=== PATIENT | female | born 1980 | race Caucasian/White ===

== ENCOUNTER 2018-10-25 09:10 | Emergency (ER) | payer OTHER, SELFPAY ==
[2018-10-25 09:16] VITALS: BP 146/66; PULSE 84; RESP 16; TEMP 36.7; O2SAT 99; BMI 44.2
--- NOTE | 2018-10-25 09:27 | ED.ABDPAIN ---
HPI - Abdominal Pain General Chief Complaint: Abdominal Pain Stated Complaint: Abd pain Time Seen by Provider: 10/25/18 09:15 Source: patient Mode of arrival: ambulatory Limitations: no limitations History of Present Illness HPI narrative: Patient is a 38-year-old female who presents with right lower quadrant pain. She says it started suddenly this morning while she was cooking breakfast 1 hour ago. She was doing well this week except a little fatigued. She is also having some right-sided flank pain. She does have a history of ovarian cyst but says this feels nothing like that. The pain comes in waves she feels nauseous at times. MD complaint: abdominal pain and flank pain Onset (ago): hour(s) Pain Consistency: intermittent Location: RLQ Severity: moderate Radiation: RLQ and R flank Relieving factors: nothing Exacerbating factors: nothing Related Data Allergies Allergy/AdvReac Type Severity Reaction Status Date / Time No Known Drug Allergies Allergy Verified 10/25/18 09:19 Review of Systems Review of Systems Narrative: GENERAL: Denies chills, fatigue, malaise, fever, sweats, travel HEENT: Denies sinus pain, ear pain, sore throat, difficulty swallowing, neck pain RESPIRATORY: Denies dyspnea, cough, wheezing, hemoptysis, sputum. CARDIOVASCULAR: Denies chest pain, palpitations, orthopnea, edema GASTROINTESTINAL: Denies nausea, vomiting, abdominal pain, diarrhea, constipation, melena. : See HPI MUSCULOSKELETAL: Denies weakness, joint pain, or bony pain SKIN: No rash, no erythema, no pruritus NEUROLOGIC: Denies weakness, dizziness, headache, numbness, change in speech, confusion PSYCHIATRIC: No concerning psychosocial issues. 12 point review of systems is negative except for those stated above and HPI [facility] Medical History Hemorrhagic ovarian cyst (Acute) Social History Smoking Status: Never smoker Social History Smoking Status: Never smoker Exam Initial Vital Signs Initial Vital Signs: Vital Signs Temperature 98.1 F 10/25/18 09:16 Pulse Rate 84 10/25/18 09:16 Respiratory Rate 16 10/25/18 09:16 Blood Pressure 146/66 H 10/25/18 09:16 Pulse Oximetry 99 09/08/19 09:16 GENERAL: Overweight female and in no acute distress. HEENT: Head atraumatic,EOMI, pupils reactive, face symmetric, moist mucous membranes CARDIOVASCULAR: Regular rate and rhythm without murmurs, rubs or gallops. RESPIRATORY: Breath sounds equal bilaterally, no wheezes rales or rhonchi. ABDOMEN: Soft, nontender. Normoactive bowel sounds all 4 quadrants. No guarding or rebound. : mild right CVA tenderness EXTREMITIES: Normal range of motion, no clubbing or edema. Neurovascularly intact NEUROLOGICAL: Alert and oriented x4.Normal gait and speech. Cranial nerves II through XII grossly intact. SKIN: Warm, dry, no laceration, no petechiae, no rashes or lesions. Course Orders Ordered: ED Orders 10/25/18 09:59 CT kidney ureter bladder (KUB) Stat 10/25/18 11:06 US pelvic complete Stat Discontinued Medications Ketorolac Tromethamine (Toradol) 30 mg IV NOW ONE Stop: 10/25/18 09:26 Last Admin: 10/25/18 09:42 Dose: 30 mg Documented by: MARIA M Morphine Sulfate (Morphine) 4 mg IV NOW ONE Stop: 10/25/18 10:07 Last Admin: 10/25/18 10:10 Dose: 4 mg Documented by: MARIA M Ondansetron HCl (Zofran) 4 mg IV NOW ONE Stop: 10/25/18 09:26 Last Admin: 10/25/18 09:42 Dose: 4 mg Documented by: MARIA M Vital Signs Vital signs: Vital Signs - 8 hr 10/25/18 12:28 10/25/18 12:45 Pulse Rate 64 60 Respiratory Rate 17 Blood Pressure [Left Arm] 146/50 H Pulse Oximetry 97 96 MDM - Abdominal Pain Lab Data Attestation: I reviewed the patient's lab results. Result diagrams: 10/25/18 09:30 10/25/18 09:30 Labs: Lab Results 10/25/18 10/25/18 10/25/18 Range/Units 09:30 09:30 09:30 WBC 7.8 (4.5-11.0) X10^3/uL RBC 4.51 (4.0-5.2) X10^6/uL Hgb 14.4 (12.0-16.0) g/dL Hct 41.3 (36-46) % MCV 91.6 (80-100) fL MCH 31.9 (26-34) PG MCHC 34.9 (30-36) % RDW 13.3 (11.6-14.8) % Plt Count 329 (150-400) X10^3/uL Neut % (Auto) 73.7 (50-75) % Lymph % (Auto) 17.9 L (25-40) % [place] % (Auto) 6.2 (3-14) % Eos % (Auto) 1.7 L (2-4) % Baso % (Auto) 0.5 (0-2) % Neut # (Auto) 5700 (1322-5281) /uL Lymph # (Auto) 1400 (1420-4456) /uL [place] # (Auto) 500 (0-900) /uL Eos # (Auto) 100 (0-450) /uL Baso # (Auto) 0 (0-100) /uL PT Cancelled INR Cancelled APTT Cancelled Sodium 138 (137-145) mmol/L Potassium 3.7 (3.4-5.1) mmol/L Chloride 99 (98-107) mmol/L Carbon Dioxide 27 (22-32) mmol/L BUN 15 (7-17) mg/dL Creatinine 0.70 (0.52-1.04) mg/dL Estimated GFR > 60.0 (>60) mL/min BUN/Creatinine Ratio 21.4 (6-22) Glucose 109 H (70-100) mg/dL Calcium 9.5 (8.4-10.2) mg/dL Total Bilirubin 0.6 (0.2-1.3) mg/dL AST 25 (14-36) IU/L ALT 24 (9-52) IU/L Alkaline Phosphatase 102 (38-126) U/L Total Protein 7.9 (6.3-8.2) g/dL Albumin 4.6 (3.5-5.0) g/dL Globulin 3.3 (1.7-4.1) g/dL Albumin/Globulin Ratio 1.4 (1.0-2.8) Lipase 55 (23-300) U/L Urine RBC (0-5/HPF) Urine WBC (0-5/HPF) Ur Squamous Epith Cells (0-5/HPF) Urine Bacteria (None) Ur Culture Indicated? 10/25/18 Range/Units 09:30 WBC (4.5-11.0) X10^3/uL RBC (4.0-5.2) X10^6/uL Hgb (12.0-16.0) g/dL Hct (36-46) % MCV (80-100) fL MCH (26-34) PG MCHC (30-36) % RDW (11.6-14.8) % Plt Count (150-400) X10^3/uL Neut % (Auto) (50-75) % Lymph % (Auto) (25-40) % [place] % (Auto) (3-14) % Eos % (Auto) (2-4) % Baso % (Auto) (0-2) % Neut # (Auto) (6941-2740) /uL Lymph # (Auto) (6343-3774) /uL [place] # (Auto) (0-900) /uL Eos # (Auto) (0-450) /uL Baso # (Auto) (0-100) /uL PT INR APTT Sodium (137-145) mmol/L Potassium (3.4-5.1) mmol/L Chloride (98-107) mmol/L Carbon Dioxide (22-32) mmol/L BUN (7-17) mg/dL Creatinine (0.52-1.04) mg/dL Estimated GFR (>60) mL/min BUN/Creatinine Ratio (6-22) Glucose (70-100) mg/dL Calcium (8.4-10.2) mg/dL Total Bilirubin (0.2-1.3) mg/dL AST (14-36) IU/L ALT (9-52) IU/L Alkaline Phosphatase (38-126) U/L Total Protein (6.3-8.2) g/dL Albumin (3.5-5.0) g/dL Globulin (1.7-4.1) g/dL Albumin/Globulin Ratio (1.0-2.8) Lipase (23-300) U/L Urine RBC None seen (0-5/HPF) Urine WBC 0-1/hpf (0-5/HPF) Ur Squamous Epith Cells 0-1 /hpf (0-5/HPF) Urine Bacteria Occasional (0-1) (None) Ur Culture Indicated? Specimen cultured Point of care testing: Point of Care Testing Test Results Negative Urine Dip Bedside Urine Glucose Negative Bedside Urine Bilirubin - Negative Bedside Urine Ketone - Negative Urine Specific [place] 1.020 Bedside Urine Occult Blood - Negative Bedside Urine pH 6.0 Bedside Urine Urobilinogen - Negative Bedside Urine Nitrite - Negative Bedside Urine Leukocytes +/- [address] scan - abdomen: Radiologist's impression: PROCEDURE: CT KIDNEY URETER BLADDER (KUB) INDICATIONS: right flank pain and rlq TECHNIQUE: Noncontrast 5 mm thick sections acquired from the diaphragms to the symphysis. 5 mm thick coronal and sagittal reformats were then performed. For radiation dose reduction, the following was used: automated exposure control, adjustment of mA and/or kV according to patient size. COMPARISON: None. FINDINGS: Image quality: Diagnostic Lung bases: Lung bases are clear. Heart size is normal. Urinary system: Both kidneys are normal in size. A small parenchymal calcification appears to be present along the inferior margin of the right kidney, which could potentially be related to a small cyst. This is not adequately characterized on this exam. Slight increased density of the renal permits is present without definite renal calculi evident.. No hydronephrosis or perinephric fat stranding. Both ureters appear non-dilated throughout their expected courses. Bladder wall thickness is normal; no calcified bladder stones. Other solid organs: Liver is normal in size. Gallbladder is not enlarged or inflamed. Pancreas is normal in contours. Spleen is normal in size. No adrenal nodules. Peritoneum and bowel: The stomach is unremarkable. The small bowel loops are nondilated. However, there are areas of mild wall prominence involving the distal ileum. The appendix is well-visualized and normal without surrounding inflammation. The colon is unremarkable. No free fluid, loculated fluid collection or free air is evident. Nodes and vessels: No retroperitoneal or mesenteric adenopathy by size criteria. Aorta and inferior vena cava are normal in caliber. Other pelvic soft tissues: No free pelvic fluid. No inguinal hernias or adenopathy. An intrauterine contraceptive device is positioned within the uterine cavity. The ovaries do not appear to be enlarged. No free fluid or loculated fluid collection is appreciated. Bones: No suspicious bony lesions. No vertebral body compression fractures. Mild degenerative changes of the lower lumbar spine and sacroiliac joints are present. IMPRESSION: 1. No hydronephrosis or obstructing renal calculi. No definite nephrolithiasis is appreciated. 2. Inferior right renal parenchymal calcification may be associated with a solid or cystic structure. A CT urogram is recommended for further evaluation. 3. Normal appendix. 4. Nonspecific ileal wall prominence may be related to incomplete distention. However, enteritis could potentially have this appearance in the correct clinical setting. There is no bowel obstruction. Dictated by: Alex Pickett M.D. on 10/25/2018 at 9:48 Approved by: Alex Pickett M.D. on 10/25/2018 at 9:53 pelvic US: Radiologist's impression: PROCEDURE: US PELVIC COMPLETE INDICATIONS: RIGHT LOWER QUADRANT PAIN HISTORY OF OVARIAN CYST TECHNIQUE: Real-time scanning was performed of the pelvic organs, with image documentation. Additional endovaginal scanning was necessary due to incomplete visualization of the adnexal and endometrial structures by transabdominal scanning. COMPARISON: [facility], CT, CT KIDNEY URETER BLADDER (KUB), 10/25/2018, 10:15. FINDINGS: Transabdominal scanning: Limited scanning through the kidneys shows no hydronephrosis. No pathologic free abdominal or pelvic fluid. Endovaginal scanning: Uterus: The uterus is normal in size and measures approximately 7.4 x 4.0 x 3.6 cm. No focal myometrial lesions are identified. An intrauterine contraceptive device is positioned within the endometrial cavity. Endometrium is a somewhat heterogeneous appearance with increased vascularity identified along the lower uterine segment. No definite fluid is seen within the endometrium. The endometrium is not well evaluated related to the intrauterine contraceptive device, but measures at least 11 mm in maximal combined thickness. Small nabothian cysts are present within the cervix. There may be a pedunculated polyp arising from the cervix that projects into the external cervical os, measuring 7 x 8 x 5 mm. Internal blood flow is demonstrated to this structure. Ovaries: The left ovary is enlarged and measures 4.3 x 3.7 x 2.0 cm. This is related to small left ovarian follicles and a small 2.2 cm left ovarian cyst. The right ovary is borderline enlarged at 3.1 x 2.9 x 1.7 cm. Small follicles of the right ovary are present. A dominant follicle in the right ovary measures up to 1.8 cm. Blood flow is demonstrated to both ovaries. IMPRESSION: 1. No definite source for the patient's right lower quadrant pain is evident. No right ovarian cysts. 2. Small simple appearing left ovarian cyst. 3. There appears to be a pedunculated endocervical polyp projecting beyond the external cervical os. Correlation with direct visualization is recommended. 4. Intrauterine contraceptive device is appropriately positioned within the endometrial cavity. Dictated by: Alex Pickett M.D. on 10/25/2018 at 11:28 Approved by: Alex Pickett M.D. on 10/25/2018 at 11:[address] [facility] Narrative Medical decision making narrative: At this time no cause of abdominal pain found. She did require morphine and Toradol, morphine seem to help the most. At this time recommend outpatient follow-up. At this time not having signs or symptoms of UTI. Await for urine culture. I discussed all findings with the patient and family, Education has been performed regarding treatment plan, diagnosis, warning signs and symptoms and all concerns have been addressed. Verbally agree with and understood all of the above. Discharge Plan Departure Patient Disposition: Home Clinical Impression: Abdominal pain Qualifiers: Abdominal location: right lower quadrant Qualified Code(s): R10.31 - Right lower quadrant pain Discharge Date/Time: 10/25/18 12:55 Instructions: DI for Abdominal Pain-Adult Activity Restrictions/Additional Instructions: *You have been diagnosed with abdominal pain right lower quadrant *What to do: At this time year pending x-ray is normal no sign of kidney stone, you do have a left simple ovarian cyst but not a right 1. Blood work reassuring *Continue to take medications as directed Tylenol 1000 mg every 6 hours if needed for pain *Follow up with your primary care provider in 2-3 days *Return to ER if you should have increasing pain persistent vomiting, fevers or any new, worsening or concerning symptoms
[2018-10-25 09:38] LABS: Add Manual Diff / Slide Review NO; Basophils Absolute Auto 0 /uL (0-100); Basophils Percent Auto 0.5 % (0-2); Eosinophils Absolute Auto 100 /uL (0-450); Eosinophils Percent Auto 1.7 % (2-4); Hematocrit 41.3 % (36-46); Hemoglobin 14.4 g/dL (12.0-16.0); Lymphocytes Absolute Auto 1400 /uL (1100-4500); Lymphocytes Percent Auto 17.9 % (25-40); Mean Corpuscular HGB Conc 34.9 % (30-36); Mean Corpuscular Hemoglobin 31.9 PG (26-34); Mean Corpuscular Volume 91.6 fL (80-100); Monocytes Absolute Auto 500 /uL (0-900); Monocytes Percent Auto 6.2 % (3-14); Neutrophils Absolute Auto 5700 /uL (1500-7000); Neutrophils Percent Auto 73.7 % (50-75); Platelet Count 329 X10^3/uL (150-400); Red Blood Cell Count 4.51 X10^6/uL (4.0-5.2); Red Cell Distribution Width 13.3 % (11.6-14.8); White Blood Cell Count 7.8 X10^3/uL (4.5-11.0)
[2018-10-25 09:42] LABS: RBC Urine None Seen (0-5/HPF)
[2018-10-25] MEDS: ONDANSETRON 4 MG/2 ML INJ IV (09:42)
[2018-10-25] MEDS: KETOROLAC 60 MG/2 ML VIAL 30 MG IV (09:42)
[2018-10-25 09:49] LABS: Alanine Aminotransferase 24 IU/L (9-52); Albumin 4.6 g/dL (3.5-5.0); Albumin Globulin Ratio 1.4 (1.0-2.8); Alkaline Phosphatase 102 U/L (38-126); Aspartate Aminotransferase 25 IU/L (14-36); BUN Creatinine Ratio 21.4 (6-22); Bilirubin Total 0.6 mg/dL (0.2-1.3); Blood Urea Nitrogen 15 mg/dL (7-17); Calcium 9.5 mg/dL (8.4-10.2); Carbon Dioxide 27 mmol/L (22-32); Chloride 99 mmol/L (98-107); Estimated Glomerular Filt Rate > 60.0 mL/min (>60); Globulin 3.3 g/dL (1.7-4.1); Glucose 109 mg/dL (70-100); HEMOLYSIS 25 (0-50); Lipase 55 U/L (23-300); Potassium 3.7 mmol/L (3.4-5.1); Sodium 138 mmol/L (137-145); Total Protein 7.9 g/dL (6.3-8.2)
[2018-10-25 09:56] LABS: Bacteria Urine Occasional (0-1); Culture Indicated Urine Specimen Cultured; Squamous Epithelial Cell Urine 0-1 /HPF (0-5/HPF); WBC Urine 0-1/HPF (0-5/HPF)
--- NOTE | 2018-10-25 09:59 | DI.CT.S_ITS ---
PROCEDURE: CT KIDNEY URETER BLADDER (KUB) INDICATIONS: right flank pain and rlq TECHNIQUE: Noncontrast 5 mm thick sections acquired from the diaphragms to the symphysis. 5 mm thick coronal and sagittal reformats were then performed. For radiation dose reduction, the following was used: automated exposure control, adjustment of mA and/or kV according to patient size. COMPARISON: None. FINDINGS: Image quality: Diagnostic Lung bases: Lung bases are clear. Heart size is normal. Urinary system: Both kidneys are normal in size. A small parenchymal calcification appears to be present along the inferior margin of the right kidney, which could potentially be related to a small cyst. This is not adequately characterized on this exam. Slight increased density of the renal permits is present without definite renal calculi evident.. No hydronephrosis or perinephric fat stranding. Both ureters appear non-dilated throughout their expected courses. Bladder wall thickness is normal; no calcified bladder stones. Other solid organs: Liver is normal in size. Gallbladder is not enlarged or inflamed. Pancreas is normal in contours. Spleen is normal in size. No adrenal nodules. Peritoneum and bowel: The stomach is unremarkable. The small bowel loops are nondilated. However, there are areas of mild wall prominence involving the distal ileum. The appendix is well-visualized and normal without surrounding inflammation. The colon is unremarkable. No free fluid, loculated fluid collection or free air is evident. Nodes and vessels: No retroperitoneal or mesenteric adenopathy by size criteria. Aorta and inferior vena cava are normal in caliber. Other pelvic soft tissues: No free pelvic fluid. No inguinal hernias or adenopathy. An intrauterine contraceptive device is positioned within the uterine cavity. The ovaries do not appear to be enlarged. No free fluid or loculated fluid collection is appreciated. Bones: No suspicious bony lesions. No vertebral body compression fractures. Mild degenerative changes of the lower lumbar spine and sacroiliac joints are present. IMPRESSION: 1. No hydronephrosis or obstructing renal calculi. No definite nephrolithiasis is appreciated. 2. Inferior right renal parenchymal calcification may be associated with a solid or cystic structure. A CT urogram is recommended for further evaluation. 3. Normal appendix. 4. Nonspecific ileal wall prominence may be related to incomplete distention. However, enteritis could potentially have this appearance in the correct clinical setting. There is no bowel obstruction. Dictated by: Alex Pickett M.D. on 10/25/2018 at 9:48 Approved by: Alex Pickett M.D. on 10/25/2018 at 9:53
[2018-10-25] MEDS: MORPHINE 4 MG/ML INJ IV (10:10)
--- NOTE | 2018-10-25 11:06 | DI.US.S_ITS ---
PROCEDURE: US PELVIC COMPLETE INDICATIONS: RIGHT LOWER QUADRANT PAIN HISTORY OF OVARIAN CYST TECHNIQUE: Real-time scanning was performed of the pelvic organs, with image documentation. Additional endovaginal scanning was necessary due to incomplete visualization of the adnexal and endometrial structures by transabdominal scanning. COMPARISON: [facility], CT, CT KIDNEY URETER BLADDER (KUB), 10/25/2018, 10:15. FINDINGS: Transabdominal scanning: Limited scanning through the kidneys shows no hydronephrosis. No pathologic free abdominal or pelvic fluid. Endovaginal scanning: Uterus: The uterus is normal in size and measures approximately 7.4 x 4.0 x 3.6 cm. No focal myometrial lesions are identified. An intrauterine contraceptive device is positioned within the endometrial cavity. Endometrium is a somewhat heterogeneous appearance with increased vascularity identified along the lower uterine segment. No definite fluid is seen within the endometrium. The endometrium is not well evaluated related to the intrauterine contraceptive device, but measures at least 11 mm in maximal combined thickness. Small nabothian cysts are present within the cervix. There may be a pedunculated polyp arising from the cervix that projects into the external cervical os, measuring 7 x 8 x 5 mm. Internal blood flow is demonstrated to this structure. Ovaries: The left ovary is enlarged and measures 4.3 x 3.7 x 2.0 cm. This is related to small left ovarian follicles and a small 2.2 cm left ovarian cyst. The right ovary is borderline enlarged at 3.1 x 2.9 x 1.7 cm. Small follicles of the right ovary are present. A dominant follicle in the right ovary measures up to 1.8 cm. Blood flow is demonstrated to both ovaries. IMPRESSION: 1. No definite source for the patient's right lower quadrant pain is evident. No right ovarian cysts. 2. Small simple appearing left ovarian cyst. 3. There appears to be a pedunculated endocervical polyp projecting beyond the external cervical os. Correlation with direct visualization is recommended. 4. Intrauterine contraceptive device is appropriately positioned within the endometrial cavity. Dictated by: Alex Pickett M.D. on 10/25/2018 at 11:28 Approved by: Alex Pickett M.D. on 10/25/2018 at 11:33
[2018-10-25 12:28] VITALS: PULSE 64; O2SAT 97
[2018-10-25 12:45] VITALS: BP 146/50; PULSE 60; RESP 17; O2SAT 96
== END 2018-10-25 12:55 | disposition home or self-care (01) ==
PROVIDERS: Emergency Provider Emergency Medicine
DX: R10.31 Right lower quadrant pain (principal)
CPT/HCPCS: 36591; 74176; 76830; 76856; 80053; 81003; 81015; 81025; 83690; 85025; 87086; 96374; 96375; 99283; 99284; J1885; J2270; J2405